=== PATIENT | female | born 1985 | race Caucasian/White ===

== ENCOUNTER 2018-11-14 13:42 | Day surgery (SDC) | payer OTHER ==
[2018-11-14] VITALS (7 sets, daily range): BP systolic 108–128; BP diastolic 55–76; PULSE 54–84; RESP 14–24; Ht 165.1 cm; Wt 71.4 kg
[~2018-11-14] VITALS: Ht 165.1 cm; Wt 71.4 kg
--- NOTE | 2018-11-14 16:21 | PREAC ---
Date/Time of Note Date/Time of Note DATE: 11/14/18 TIME: 16:16 Anesthesia Eval and Record Evaluation Time Pre-Procedure Interview DATE: 11/14/18 TIME: 16:16 Age 33 Sex female NPO: 8 hrs Preoperative diagnosis right wrist doral ganglion cyst versus 4th dorsal compartment tenosynvitis Planned procedure excison of right wrist dorsal ganglion cyst versus 4th dorsal compartment tenosynovectopmy Past Medical History Past Medical History: None Surgery & Anesthesia Issues No known issue Meds Anticoagulation: No Beta Bossman within 24 hr: No Reason Beta Bossman not given: Pt. not on B-Bossman No Active Prescriptions or Reported Meds Meds reviewed: Yes Allergies Coded Allergies: No Known Allergy (Unverified , 11/14/18) Allergies Reviewed: Yes Labs/Studies Labs Reviewed: Reviewed by anesthesiologist test: Negative Studies: ECG (n/a), CXR (n/a) Pre-procedure Exam Last vitals Vital Signs Date Temp Pulse Resp B/P (MAP) Pulse Ox O2 O2 Flow FiO2 Time Delivery Rate 11/14/18 98.7 84 16 126/67 97 Room Air 14:20 (86) Airway: Adequate mouth opening Mallampati: Mallampati I Teeth: Normal Lung: Normal Heart: Normal ASA Physical Status ASA physical status: 1 Emergency: None Planned Anesthetic General/MAC: MAC Planned Pain Management Parenteral pain med Pre-operative Attestations Prior to commencing anesthesia and surgery, the patient was re-evaluated, there was verification of: *The patient's identity *The results of appropriate recent lab work and preoperative vital signs *The above evaluation not changing prior to induction *Anesthetic plan, risk benefits, alternative and complications discussed with patient/family; questions answered; patient/family understands, accepts and wishes to proceed. MICHELLE LEVIN MD Nov 14, 2018 16:21
[2018-11-14] MEDS ORDERED: ONDANSETRON 4 MG INJ IV PRN (16:30)
[2018-11-14] MEDS ORDERED: KETOROLAC 30 MG INJ IV PRN (16:30)
--- NOTE | 2018-11-14 16:32 | HPN ---
Date/Time of Note Date/Time of Note DATE: 11/14/18 TIME: 16:32 Interval H&P Admission Note Pt. seen H&P reviewed: No system changes OMERO MENDEZ Nov 14, 2018 16:32
[2018-11-14] MEDS ORDERED: ROPIVACAINE 0.2% 20 ML VIAL ONE (16:33)
[2018-11-14] MEDS ORDERED: LIDOCAINE 2% (SDV) 5 ML INJ ONE ×2 (16:33→16:34)
[2018-11-14] MEDS ORDERED: KETOROLAC 30 MG INJ ONE (16:50)
[2018-11-14] MEDS ORDERED: PROPOFOL 20 ML ONE (17:19)
--- NOTE | 2018-11-14 17:31 | OPPN ---
Date/Time of Note Date/Time of Note DATE: 11/14/18 TIME: 17:31 Operative Report Preoperative Diagnosis right wrist dorsal ganglion cyst Postoperative Diagnosis right wrist dorsal ganglion cyst Operation/Procedure Performed right wrist dorsal ganglion cyst excision Surgeon see signature line resident programs assistant none Anesthesia: MAC Estimated blood loss: 0 - 10 ml's Transfusion Required none Specimen none Grafts/Implants none Complications none OMERO MENDEZ Nov 14, 2018 17:31
--- NOTE | 2018-11-14 21:09 | OPR ---
DATE OF OPERATION: 11/14/2018 SURGEON: Miguelito Leon MD. ANESTHESIA: Local MAC. PREOPERATIVE DIAGNOSIS: Right wrist dorsal ganglion. POSTOPERATIVE DIAGNOSIS: Right wrist dorsal ganglion. PROCEDURE: Excision of right wrist dorsal ganglion cyst. OPERATIVE FINDINGS: Right wrist dorsal ganglion cyst arising from the scapholunate interval. INDICATION FOR PROCEDURE: A 33-year-old female with longstanding right wrist cyst, who failed conservative management and elected to proceed with surgical intervention, understanding the risks and benefits. DESCRIPTION OF PROCEDURE: The patient was seen in the preoperative area and all further questions were answered. Again, she gave informed consent, understanding the risks and benefits. She was taken to operative suite, and placed in supine position. Sedation was administered as was Ancef 2 grams IV. Tourniquet placed in the right upper extremity and right upper extremity was prepped with ChloraPrep stick and draped in usual sterile fashion. Esmarch bandage was used to exsanguinate the extremity and local anesthesia was injected with a total of 15 mL injected at the right dorsal wrist. A longitudinal incision over the right dorsal wrist was utilized with sharp dissection carried down through skin and subcutaneous tissue. Tenotomy scissor divided the soft tissues overlying the dorsal wrist cyst including the fascia over the fourth dorsal compartment at that level and the tendons were retracted. The second, third and fourth dorsal compartment tendons were protected and the cyst was excised all the way down to the level of the wrist capsule and the scapholunate ligament. Wound was copiously irrigated. Skin closed with 5-0 nylon. Xeroform placed in the wound followed by sterile gauze, Webril, and a short arm splint. Tourniquet deflated after 50 minutes. The patient was awakened from anesthesia. She was taken to postoperative suite in stable condition, tolerated the procedure well without complication. SPECIMENS: None. ESTIMATED BLOOD LOSS: 5 mL. COUNTS: Sponge, instrument, needle counts correct. TOURNIQUET TIME: 50 minutes. CONDITION ON DISCHARGE: Stable. The patient was given a nonrefillable 5-day prescription for pain medication for surgery today. Dictated By: MIGUELITO HeartDN/ARLETTE Conf#: [id number] DID#: [id number] [facility]
--- NOTE | 2018-11-15 10:17 | PAC ---
Date/Time of Note Date/Time of Note DATE: 11/15/18 TIME: 10:17 Post-Anesthesia Notes Post-Anesthesia Note Last documented vital signs Vital Signs Date Temp Pulse Resp B/P (MAP) Pulse Ox O2 O2 Flow FiO2 Time Delivery Rate 11/14/18 97.6 61 18 128/76 98 Room Air 18:05 (93) Activity: WNL Respiratory function: WNL Cardiovascular function: WNL Mental status: Baseline Pain reasonably controlled: Yes Hydration appropriate: Yes Nausea/Vomiting absent: No MICHELLE LEVIN MD Nov 15, 2018 10:17
== END 2018-11-14 18:54 | disposition home or self-care (01) ==
LOC: SDS 13:42
PROVIDERS: ATTEND Orthopaedic Surgery Hand Surgery
DX: M67.431 Ganglion, right wrist (principal)
CPT/HCPCS: 25111; J1885; J2795; Z7610; 84703